=== PATIENT | male | born 1995 | race African-American/Black ===

== ENCOUNTER 2024-10-12 07:40 | Emergency (ER) | payer SELFPAY ==
[~2024-10-12] VITALS: Ht 190.5 cm; Wt 80.3 kg
[2024-10-12 07:58] VITALS: BP 138/96; TEMP 97.5; O2SAT 100
[2024-10-12 07:59] VITALS: PULSE 80; RESP 16
--- NOTE | 2024-10-12 08:11 | ED.PDOC ---
History of Present Illness HPI Comments 28 y.o male presents to the ED for an evaluation of insomnia associated with anxiety. Patient reports he was diagnosed with insomnia by PCP a couple months ago, placed on Restoril with a positive outcome. However, patient reports after taking medication for 4-5 days, he discarded medication, stating he felt better and no longer needed to take it. Patient states x 3-4 days ago he began having similar issue with sleeping and thought it was due to caring for his children who have recently been sick at home. Patient denies any SI, HI, or any other symptoms. 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 Chief Complaint: Anxiety Time Seen by MD: 08:00 Reviewed Notes: Nurses Notes, Medications, Allergies Allergies: Coded Allergies: NO KNOWN ALLERGIES (Unverified , 10/12/24) Information Source: Patient Mode of Arrival: Ambulatory Severity: Moderate Timing: Days Duration: Since onset Past Medical History PAST MEDICAL HISTORY: Anxiety Surgical History: Denies all surgeries Family History Family History: Reviewed,noncontributory to illness, No family hx of Cancer, No family hx of DM, No family hx of Heart demar, No family hx of HTN, No family hx ofKidney demar, No family hx of Liver demar, No family hx of Lung demar, No family hx of Stroke Social History Smoker: Non-Smoker Alcohol: Denies ETOH Use Drugs: Denies Drug Use Lives In: Home Constitutional: denies: chills, diaphoresis, fatigue, fever, malaise, sweats, weakness, others EENTM: denies: blurred vision, double vision, ear bleeding, ear discharge, ear drainage, ear pain, ear ringing, eye pain, eye redness, hearing loss, mouth pain, mouth swelling, nasal discharge, nose bleeding, nose congestion, nose pain, photophobia, tearing, throat pain, throat swelling, voice changes, others Respiratory: denies: cough, hemoptysis, orthopnea, SOB at rest, shortness of breath, SOB with excertion, stridor, wheezing, others Cardiovascular: denies: chest pain, dizzy spells, diaphoresis, Dyspnea on exertion, edema, irregular heart beat, left arm pain, lightheadedness, palpitations, PND, syncope, others Gastrointestinal: denies: abdomen distended, abdominal pain, blood streaked bowels, constipated, diarrhea, dysphagia, difficulty swallowing, hematemesis, melena, nausea, poor appetite, poor fluid intake, rectal bleeding, rectal pain, vomiting, others Genitourinary: denies: burning, dysuria, flank pain, frequency, hematuria, incontinence, penile discharge, penile sore, pain, testicle pain, testicle swelling, urgency, others Neurological: denies: dizziness, fainting, headache, left sided numbness, left sided weakness, numbness, paresthesia, pre-existing deficit, right sided numbness, right sided weakness, seizure, speech problems, tingling, tremors, weakness, others Musculoskeletal: denies: back pain, gout, joint pain, joint swelling, muscle pain, muscle stiffness, neck pain, others Integumetry: denies: bruises, change in color, change in hair/nails, dryness, laceration, lesions, lumps, rash, wounds, others Allergic/Immunocompromised: denies: Difficulty Healing, Frequent Infections, Hives, Itching, others Hematologic/Lymphatic: denies: anemia, blood clots, easy bleeding, easy bruising, swollen glands, others Endocrine: denies: excessive hunger, excessive sweating, excessive thirst, excessive urination, flushing, intolerance to cold, intolerance to heat, unexplained weight gain, unexplained weight loss, others Psychiatric: reports: anxiety; denies: bipolar disorder, depression, hopeless, panic disorder, schizophrenia, sleepless, suicidal, others All Other Systems: Reviewed and Negative Physical Exam General Appearance: No Apparent Distress, Normal HEENT: Normal ENT Inspection, Pharynx Normal, TMs Normal Neck: Full Range of Motion, Non-Tender, Normal, Normal Inspection Respiratory: Chest Non-Tender, Lungs Clear, No Accessory Muscle Use, No Respiratory Distress, Normal Breath Sounds Cardiovascular: No Edema, No JVD, No Murmur, No Gallop, Normal Peripheral Pulses, Regular Rate/Rhythm Breast Exam: Deferred Gastrointestinal: No Organomegaly, Non Tender, No Pulsatile Mass, Normal Bowel Sounds, Soft Genitalia: Deferred Pelvic: Deferred Rectal: Deferred Extremities: No calf tenderness, Normal capillary refill, Normal inspection, Normal range of motion, Non-tender, No pedal edema 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 Was a procedure done?: No Differential Dx Considerations may include: Anxiety, insomnia, dehydration, stress induced X-Ray, Labs, Meds, VS Vital Signs Date Time Temp Pulse Resp B/P (MAP) Pulse Ox O2 Delivery O2 Flow Rate FiO2 10/12/24 07:59 80 16 10/12/24 07:58 97.5 80 16 138/96 (110) 100 97.5 10/12/24 07:45 97.5 80 16 140/85 99 97.5 X-Ray, Labs, Meds, VS Comment Patient with a history of anxiety and insomnia ran out of his medication he is followed by his primary care doctor Time of 1ST Reevaluation: 08:11 Reevaluation 1ST: Unchanged Time of 2ND Reevaluation: 08:14 Reevaluation 2ND: Unchanged Consultation: PCP, Psychiatry Patient Education/Counseling: Diagnosis, Treatment, Prognosis, Need For Follow Up Family Education/Counseling: Diagnosis, Treatment, Prognosis, Need For Follow Up, No Family Present SEPSIS Sepsis Screen Date sepsis recognized/suspect: Oct 12, 2024 Time Sepsis recognized/suspect: 0743 Recent Procedure: No On Antibiotic Therapy: No Respiratory Rate >20: No Heart Rate >90: No Temp<36 C (96.8 F) or >38.3 C: No SBP <90 or MAP <65 mmHG: No New Acute Mental Status Change: No Is the patient on CPAP, BIPAP,: No Vital Signs Date Time Temp Pulse Resp B/P (MAP) Pulse Ox O2 Delivery O2 Flow Rate FiO2 10/12/24 07:59 80 16 10/12/24 07:58 97.5 80 16 138/96 (110) 100 97.5 10/12/24 07:45 97.5 80 16 140/85 99 97.5 Departure 1 Departure Time of Disposition: 08:14 Impression: Primary Impression: Insomnia due to anxiety and fear Disposition: 01 HOME / SELF CARE / HOMELESS Condition: Fair Additional Instructions: You need to follow up with the your PCP or possibly have a consult with a psychiatrist e-Prescriptions Buspirone HCl (Buspirone HCl) 10 Mg Tab 10 MG PO BID for 30 Days, #60 TAB Prov: BRAULIO MURILLO MD 10/12/24 Discharged With: Self Critical Care Note Critical Care Time?: No Stability Stability form required: No I personally scribed for BRAULIO MURILLO MD ([email or web address]) on 10/12/24 at 08:11. Electronically submitted by Ernestina Escudero ([facility]). BRAULIO MURILLO MD Oct 12, 2024 08:11
[2024-10-12] MEDS ORDERED: BUSP10TA31 PO (08:21)
[2024-10-12] MEDS ORDERED: CLON-1004 PO (09:32)
[2024-10-12] MEDS ORDERED: AMIT-400 PO (09:32)
== END 2024-10-12 09:43 | disposition home or self-care (01) ==
LOC: ER 07:40
DX: F51.05 Insomnia due to other mental disorder (principal); F41.9 Anxiety disorder, unspecified